=== PATIENT | female | born 1990 | race Hispanic/Latino ===

== ENCOUNTER 2017-12-28 01:23 | Emergency (ER) | payer OTHER ==
[2017-12-28] MEDS ORDERED: Acetaminophen 500 MG TAB ONE (01:41)
--- NOTE | 2017-12-28 08:52 | RAD ---
LEFT ANKLE 3 VIEWS: HISTORY: Trauma. Pain. FINDINGS: Joint space is preserved. Ankle mortise is intact. No fracture. Lateral soft tissue swelling. IMPRESSION: No fracture. Lateral soft tissue swelling. POS: [facility]
== END 2017-12-28 02:40 | disposition home or self-care (01) ==
LOC: SCSER 01:23
DX: O9A.213 Injury, poisoning and certain other consequences of external causes complicating pregnancy, third trimester (principal); S93.402A Sprain of unspecified ligament of left ankle, initial encounter; Z3A.35 35 weeks gestation of pregnancy; W10.9XXA Fall (on) (from) unspecified stairs and steps, initial encounter
CPT/HCPCS: 29515

== ENCOUNTER 2018-02-02 12:41 | Inpatient (IN) | payer OTHER ==
[~2018-02-02 12:41] MED LIST: Bupivacaine/Epinephrine 0.25% 30 ML VIAL ONE
[2018-02-02 13:11] VITALS: BMI 27.4
[2018-02-02] MEDS ORDERED: Lidocaine 1% (PF) 30 ML VIAL SC PRN (13:28)
[2018-02-02] MEDS ORDERED: Promethazine HCl 25 MG/ML VIAL IM PRN ×3 (13:28→21:56)
[2018-02-02] MEDS ORDERED: Ondansetron HCl/PF 4 MG/2 ML Vial IVP PRN ×3 (13:28→21:56)
[2018-02-02] MEDS ORDERED: NS / Oxytocin 40 units/1000ml 1,000 ML IV PRN (13:28)
[2018-02-02] MEDS ORDERED: HYDROcodone/Acetaminophen 5/325 mg Tablet PO PRN ×2 (13:28)
[2018-02-02] MEDS ORDERED: Ibuprofen 800 MG TAB PO PRN (13:28)
[2018-02-02] MEDS: Lactated Ringer's 1,000 ML IV SCH ×3 (13:35→20:26)
[2018-02-02 13:45] LABS: Hemoglobin 10.5 g/dL (12.0-16.0); Mean Corpuscular Hemoglobin 31.2 pg (27.0-31.0); Mean Corpuscular Volume 89.1 fL (78.0-98.0); Mean Platelet Volume 7.2 fL (7.4-10.4); Platelet Count 259 thou/uL (130-400); RBC Distribution Width 11.9 % (11.5-14.5); Red Blood Cell (RBC) Count 3.37 mill/uL (4.20-5.40); White Blood Cell (WBC) Count 15.6 thou/uL (4.8-10.8)
[2018-02-02] MEDS: NS w/ Oxytocin 10 units 500 ML IV SCH (14:04)
[2018-02-02 14:34] LABS: HBSAg Index 0.22 S/CO (0-0.99); Hep B Surf Ag Non-Reactive S/CO (NonReactive); Syphilis Antibody Nonreactive (Nonreactive); Syphilis Antibody Index 0.03 S/CO (<1.00 Non-Reactive)
[2018-02-02] MEDS ORDERED: DISCONTINUE ALL PREVIOUS NARCOTICS FS SCH (20:00)
[2018-02-02] MEDS: Bupivacaine 0.75% 13.4 ML, fentaNYL Citrate/PF 400 MCG in Sodium Chloride 0.9% 78.6 ML EPIDURAL SCH (21:52)
[2018-02-02] MEDS ORDERED: Lactated Ringer's 500 ML IV PRN ×2 (21:56)
[2018-02-02] MEDS ORDERED: Acetaminophen 325 MG TAB PO PRN ×2 (21:56)
[2018-02-02] MEDS ORDERED: Eucerin (Mineral Oil/Petrolatum,White) 30 gm Jar TOP PRN ×2 (21:56)
[2018-02-02] MEDS ORDERED: diphenhydrAMINE 50 MG/ML VIAL IVP PRN ×2 (21:56)
[2018-02-02] MEDS ORDERED: Naloxone HCl 0.4 mg/ml Vial IVP PRN ×4 (21:56)
[2018-02-02] MEDS ORDERED: ePHEDrine/0.9% NaCl/PF SYRINGE 50 mg/10 ml SLOW IVP PRN ×2 (21:56)
[2018-02-02] MEDS ORDERED: Communication Order-Pharmacy FS SCH ×2 (22:00)
[2018-02-02] MEDS ORDERED: fentaNYL Citrate/PF 400 MCG, Bupivacaine 0.5% 20 ML in Sodium Chloride 0.9% 72 ML EPIDURAL SCH (22:00)
[2018-02-03] MEDS: Lactated Ringer's 1,000 ML IV SCH ×2 (02:00→23:25)
[2018-02-03] MEDS: NS w/ Oxytocin 10 units 500 ML IV SCH (03:30)
[2018-02-03] MEDS ORDERED: Lidocaine 1% (PF) 30 ML VIAL ONE (04:25)
[2018-02-03] MEDS ORDERED: NS / Oxytocin 40 units/1000ml 1,000 ML ONE (04:25)
[2018-02-03] MEDS: Bupivacaine 0.75% 13.4 ML, fentaNYL Citrate/PF 400 MCG in Sodium Chloride 0.9% 78.6 ML EPIDURAL SCH (04:28)
--- NOTE | 2018-02-03 06:00 | OP ---
DATE OF SERVICE: 02/03/2018 ADMITTING DIAGNOSES: 1. A 27-year-old G1 at 40+ weeks with elevated blood pressures, sent for induction of labor. 2. Group B streptococcus negative. 3. Mild blood pressures without any other preeclampsia signs or symptoms. 4. Artificial membranes ruptured with clear fluid. POSTOPERATIVE DIAGNOSES: 1. A 27-year-old G1 at 40+ weeks with elevated blood pressures, sent for induction of labor. 2. Group B streptococcus negative. 3. Mild blood pressures without any other preeclampsia signs or symptoms. 4. Artificial membranes ruptured with clear fluid. 5. Liveborn male infant with Apgars of 9 and 9 at 1 and 5 minutes respectively. SURGEON: Radha Vaughan MD ESTIMATED BLOOD LOSS: 250 mL ANESTHESIA: Epidural. SPECIAL MEDICATIONS: None. CLINICAL HISTORY: This patient is a 27-year-old female, G1, who presented to the office today for her normal office visit for OB care. She was 40 weeks and 2 days and noted some pressure and irr egular contractions. She was checked and noted to be 1.5 cm, 70% effaced and -3 station. Her exam w as only remarkable for edema in the lower extremities, upper extremities and face as well as an eleva barry blood pressure of 140/90. The patient had normal reflexes bilateral that were equal. Discussion about induction of labor ensued and the patient was advised to go to labor and delivery for inductio n of labor by Pitocin. Otherwise, the was only complicated by a first trimester positive, chlamydia screen which was treated and test of cure was negative. Also, history of social tobacco us e with cessation at the positive hCG. The patient was admitted and noted to have some mild intermittent blood pressures in between normal b lood pressures. She was started on Pitocin and an amniotomy was performed with clear fluid. The pat ient continued to progress and requested an epidural for maternal analgesia. Once the patient was co mfortable, she continued to progress to complete cervical dilation and began to push. DETAILS OF PROCEDURE: With good maternal effort, the patient was able to bring the vertex to t he MISAEL position, she delivered the head, then there was noted to be a nuchal cord that was loose and due to the momentum of the body, the fetus was delivered through the cord. The anterior should er followed by the posterior shoulder followed by the remainder of the 's body. The cord was d oubly clamped and cut by the father of the baby and placed on the maternal abdomen. was a vig orous with a good cry and was bulb suctioned. The delivery of the placenta was spontaneous intact wi th a 3-vessel cord. Cord blood was obtained. Exploration of the vagina, introitus, and cervix yield ed a small first-degree lateral vaginal tear that was repaired in interrupted sutures for hemostasis. Once hemostasis was achieved, a superficial running 3-0 Vicryl was used to reapproximate the tissue s with excellent hemostasis. The patient tolerated the procedure well and was able to recover in the labor and delivery room in satisfactory condition with her . Again, the infant was a male, we ight was unavailable at the time of dictation with Apgars of 9 and 9 at 1 and 5 minutes respectively. All needle, sponge, lap, and instrument counts were correct x2. There were no other issues surroun ding this delivery.
[2018-02-03] MEDS ORDERED: Lanolin Ointment 7 GM TUBE TOP PRN (07:35)
[2018-02-03] MEDS ORDERED: Adacel (T-DAP) 0.5 ML VIAL IM ONE (07:35)
[2018-02-03] MEDS ORDERED: NS / Oxytocin 40 units/1000ml 1,000 ML IV SCH (07:35)
[2018-02-03] MEDS ORDERED: Bisacodyl 10 MG SUPP PR PRN (07:35)
[2018-02-03] MEDS ORDERED: Milk Of Magnesia 30 ML UDCUP PO PRN (07:35)
[2018-02-03] MEDS ORDERED: HYDROcodone/Acetaminophen 5/325 mg Tablet PO PRN ×2 (07:35)
[2018-02-03] MEDS: Prenatal Vitamin 1 TAB PO SCH (08:40)
[2018-02-03] MEDS: Ferrous Sulfate 325 MG TAB PO SCH ×2 (08:40→17:07)
[2018-02-03] MEDS: Docusate Calcium (SURFAK) 240 MG CAP PO SCH ×2 (08:40→21:09)
[2018-02-03] MEDS: Ibuprofen 800 MG TAB PO SCH ×3 (08:40→21:09)
[2018-02-03] MEDS ORDERED: Benzocaine/Menthol 20-0.5% 60 ML CAN TOP PRN (21:23)
[2018-02-04] MEDS: Ibuprofen 800 MG TAB PO SCH ×3 (04:33→20:48)
[2018-02-04] MEDS: Lactated Ringer's 1,000 ML IV SCH ×3 (06:40→20:49)
[2018-02-04] MEDS: Ferrous Sulfate 325 MG TAB PO SCH ×2 (07:31→11:02)
[2018-02-04] MEDS: Docusate Calcium (SURFAK) 240 MG CAP PO SCH ×2 (09:21→20:49)
[2018-02-04] MEDS: Prenatal Vitamin 1 TAB PO SCH (09:21)
[2018-02-05 02:46] VITALS: TEMP 98.6
[2018-02-05] MEDS: Ibuprofen 800 MG TAB PO SCH (07:13)
[2018-02-05] MEDS: Lactated Ringer's 1,000 ML IV SCH (10:12)
[2018-02-05] MEDS: Ferrous Sulfate 325 MG TAB PO SCH (10:13)
[2018-02-05] MEDS: Docusate Calcium (SURFAK) 240 MG CAP PO SCH (10:16)
[2018-02-05] MEDS: Prenatal Vitamin 1 TAB PO SCH (10:16)
[2018-02-05 10:18] VITALS: BP 157/86
== END 2018-02-05 11:55 | disposition home or self-care (01) | DRG 775 ==
LOC: L&D 12:41 → 3SW 02-03 07:32
PROVIDERS: ADMIT Obstetrics & Gynecology; ATTEND Obstetrics & Gynecology
PROC: 10E0XZZ Delivery of Products of Conception, External Approach (ICD-10-PCS; principal; 2018-02-03)
PROC: 3E033VJ Introduction of Other Hormone into Peripheral Vein, Percutaneous Approach (ICD-10-PCS; 2018-02-03)
PROC: 10907ZC Drainage of Amniotic Fluid, Therapeutic from Products of Conception, Via Natural or Artificial Opening (ICD-10-PCS; 2018-02-03)
PROC: 0HQ9XZZ Repair Perineum Skin, External Approach (ICD-10-PCS; 2018-02-03)
DX: O75.89 Other specified complications of labor and delivery (principal); O70.0 First degree perineal laceration during delivery; O69.81X0 Labor and delivery complicated by cord around neck, without compression, not applicable or unspecified; R03.0 Elevated blood-pressure reading, without diagnosis of hypertension; Z3A.40 40 weeks gestation of pregnancy; Z37.0 Single live birth; Z87.891 Personal history of nicotine dependence
CPT/HCPCS: 85027; 86780; 86850; 86900; 86901; 87340; A4216; J2001; J3010; J7050

== ENCOUNTER 2018-12-23 06:00 | Emergency (ER) | payer SELFPAY ==
[2018-12-23] MEDS ORDERED: Ondansetron PF 4 MG/2 ML Vial ONE ×2 (06:32→07:33)
[2018-12-23 06:40] LABS: #Basophils 0.1 thou/uL (0.0-0.2); #Eosinphils 0.1 thou/uL (0.0-0.7); #Lymphocytes 1.3 thou/uL (1.20-3.40); #Monocytes 0.4 thou/uL (0.11-0.59); #Neutrophils 11.4 thou/uL (1.40-6.50); %Basophils 0.5 % (0.0-1.0); %Eosinophils 0.4 % (0.0-10.0); %Lymphocytes 9.7 % (21.0-51.0); %Monocytes 2.9 % (0.0-10.0); %Neutrophils 86.5 % (42.0-75.0); Hemoglobin 14.3 g/dL (12.0-16.0); Mean Corpuscular HGB CONC 34.8 g/dL (32.0-36.0); Mean Corpuscular Volume 86.2 fL (78.0-98.0); Mean Platelet Volume 6.4 fL (7.4-10.4); Platelet Count 279 thou/uL (130-400); Red Blood Cell (RBC) Count 4.76 mill/uL (4.20-5.40); White Blood Cell (WBC) Count 13.2 thou/uL (4.8-10.8)
[2018-12-23 06:45] LABS: BHCG - Serum Negative (NEGATIVE); Pregs Control Background? CLEAR/WHITE (CLR/WHITE); Pregs Control Bar Appear? YES (CONTROL BAR)
[2018-12-23 06:51] LABS: ALT (SGPT) 14 U/L (8-55); AST (SGOT) 14 U/L (5-34); Albumin 4.5 g/dL (3.5-5.0); Alkaline Phosphatase 53 U/L (40-150); Anion Gap 15 mmol/L (10-20); BUN (Urea Nitrogen) 10 mg/dL (7.0-18.7); Bilirubin, Total 0.3 mg/dL (0.2-1.2); Calc. Creatinine Clearance 0 mL/min (70-130); Calcium 9.7 mg/dL (7.8-10.44); Carbon Dioxide 23 mmol/L (22-29); Chloride 106 mmol/L (98-107); Estimated GFR-MDRD 79; Globulin 2.5 g/dL (2.4-3.5); Glucose 168 mg/dL (70-105); Lipase 40 U/L (8-78); Potassium 3.6 mmol/L (3.5-5.1); Sodium 140 mmol/L (136-145)
[2018-12-23] MEDS ORDERED: Promethazine HCl 25 MG/ML VIAL ONE (08:21)
== END 2018-12-23 09:24 | disposition home or self-care (01) ==
LOC: SCSER 06:00
DX: R11.2 Nausea with vomiting, unspecified (principal); R10.31 Right lower quadrant pain
CPT/HCPCS: 80053; 83690; 84703; 85025; 96361; 96365; 96375; 96376; J2405; J2550